=== PATIENT | female | born 1970 | race Caucasian/White ===

== ENCOUNTER 2019-07-24 10:43 | Outpatient (CLI) | payer OTHER, SELFPAY ==
--- NOTE | ~2019-07-24 | MM_ITS ---
EXAMINATION: MM screening [facility] BI w chris HISTORY: Screening mammogram TECHNIQUE: Craniocaudal and mediolateral oblique 3-D tomosynthesis images were obtained and synthetic 2-D images were generated. CAD analysis was submitted and interpreted. COMPARISON: Comparison to multiple prior studies sequentially, with oldest reviewed study dated 06/2013. BREAST PARENCHYMAL COMPOSITION: There are scattered areas of fibroglandular density. FINDINGS: There is no evidence of suspicious mass, calcification, or architectural distortion to sugg est malignancy in either breast. There has been no suspicious interval change. IMPRESSION: 1. No mammographic evidence of malignancy. 2. Recommend routine screening mammography in one year. BI-RADS Category 1: Negative Reviewed, dictated and finalized at location A.
== END 2019-07-24 10:44 | disposition home or self-care (01) ==
LOC: ANHIMG 10:48
PROVIDERS: PCP Obstetrics & Gynecology; Visit Provider Obstetrics & Gynecology
DX: Z12.31 Encounter for screening mammogram for malignant neoplasm of breast (principal)
CPT/HCPCS: 77063; 77067

== ENCOUNTER 2022-05-19 08:26 | Emergency (ER) | payer OTHER, SELFPAY ==
[2022-05-19 08:33] VITALS: BP 120/67; PULSE 93; RESP 16; TEMP 36.3; O2SAT 98
--- NOTE | 2022-05-19 08:55 | ED.URI ---
HPI - URI/Sore Throat General Chief Complaint: Upper Respiratory Infection Stated Complaint: Cough/Sinus/Wheezing Time Seen by Provider: 05/19/22 08:55 Source: patient and RN notes reviewed Mode of arrival: ambulatory Limitations: no limitations History of Present Illness HPI Narrative: 51-year-old female presents concern for cough for 3 days. She reports sinus congestion and wheezing. She reports she had a negative COVID test yesterday. She denies known sick contacts. Reports she tried Mucinex DM without relief MD elicited complaint: cough Related Data Home Medications Medication Instructions Recorded Confirmed alprazolam 0.5 mg tablet 0.5 mg PO DIRECTED 05/19/22 05/19/22 atorvastatin 10 mg tablet 10 mg PO DAILY 05/19/22 05/19/22 citalopram 40 mg tablet 40 mg PO DAILY 05/19/22 05/19/22 estradiol 1 mg tablet 1 mg PO DIRECTED 05/19/22 05/19/22 Allergies Allergy/AdvReac Type Severity Reaction Status Date / Time bupropion Allergy Severe Anaphylactic Verified 05/19/22 08:30 Shock Review of Systems Review of Systems: CONSTITUTIONAL: Reports malaise, sweats. Reports fever 2 days ago. EYES: Denies visual changes, redness, or discharge. ENT: Reports rhinorrhea, congestion, otalgia. Denies sore throat. CARDIOVASCULAR: Denies chest pain, palpitations, or edema. RESPIRATORY: Reports cough, wheezing. Denies dyspnea. GASTROINTESTINAL: Denies abdominal pain, nausea, vomiting, diarrhea SKIN: Denies rash or itching. MUSCULOSKELETAL: Denies myalgia. NEUROLOGIC: Denies headache. All systems reviewed & are unremarkable except as noted in HPI and below [facility] Family History Family History (Updated 10/10/13 @ 07:13 by DOCTOR UNKNOWN) Father Hypertension, Onset Age: 60 Family history of type 2 diabetes mellitus, Onset Age: 60 Patient's father is , Onset Age: 60 Grandparent Hypertension, Onset Age: 82 Family history of malignant melanoma Family history of malignant neoplasm of gastrointestinal tract Mother Carcinoma of colon Family history of malignant neoplasm of gastrointestinal tract Other Family history of cardiovascular disease Social History Social History Smoking status: Light tobacco smoker Second hand tobacco smoke exposure: Yes Alcohol intake: current Comments At time of signature, agree with nursing past medical, surgical, social and family history. There is no relevant family history pertinent to the presenting complaint Exam Narrative: GENERAL: Well-appearing, well-nourished, and in no acute distress. HEAD: Normocephalic EYES: PERRLA, conjunctivae clear ENT: Nares clear, turbinates edematous and erythematous, clear discharge. Mucous membranes moist. TM pearly berry with dull light reflex bilaterally; no tragal tenderness. Oropharynx not erythematous without lesions. Tonsils not enlarged and without exudate, no drooling, no hoarseness, no trismus, uvula midline. NECK: Supple. No lymphadenopathy CHEST: Scattered expiratory wheeze, otherwise clear to auscultation, breath sounds equal. No rhonchi, rales, or stridor. No respiratory distress, speaks in full sentences. Persistent cough noted HEART: Regular rate and rhythm. No murmur heard. SKIN: Warm, dry, no rash. NEURO: Alert and oriented x3. PSYCH: Normal mood and affect Course Course Emergency Course: Patient is aware of diagnosis, understands and agrees to treatment plan. Anticipatory guidance given. Patient agrees to follow-up as directed and is aware of reasons to seek care at the emergency department. Portions of this record may have been created with voice recognition software Level of Care: Express Care Visit Vital Signs Vital signs: Vital Signs Temperature 97.4 F L 05/19/22 08:33 Pulse Rate 93 05/19/22 08:33 Respiratory Rate 16 05/19/22 08:33 Blood Pressure 120/67 05/19/22 08:33 Pulse Oximetry 98 05/19/22 08:33 Oxygen Delivery Room Air 05/19/22 08:33 Temperature 97.
== END 2022-05-19 09:08 | disposition home or self-care (01) ==
PROVIDERS: Emergency Provider Nurse Practitioner; PCP Nurse Practitioner Family
DX: J40 Bronchitis, not specified as acute or chronic (principal); F17.200 Nicotine dependence, unspecified, uncomplicated
CPT/HCPCS: 87081; 87804; 87880; 99213; G0463

== ENCOUNTER 2022-10-31 11:44 | Emergency (ER) | payer OTHER, SELFPAY ==
[2022-10-31] VITALS (14 sets, daily range): BP systolic 141–161; BP diastolic 80–99; PULSE 48–76; RESP 11–20; TEMP 36.8; O2SAT 97–100
--- NOTE | ~2022-10-31 | XR_ITS ---
Clinical Indication: Cough, fever PA and lateral views of the chest: Comparison: None Findings: The lungs are clear, without evidence of focal consolidation or pleural effusion. Cardiome diastinal silhouette is within normal limits. Bones and soft tissues are unremarkable. Impression: Normal chest. Reviewed, dictated and finalized at [facility]. Impression: Normal chest.
--- NOTE | ~2022-10-31 | CT_ITS ---
CT of the Abdomen and Pelvis: Indication: Abdominal pain Technique: 2.5 mm axial scans were obtained through the abdomen and pelvis following intravenous adm inistration of 100 cc of Omnipaque 350. Dose reduction technique was used on this scan by utilizing a utomated exposure control and iterative reconstruction technique. The dose-length product (DLP) was 5 76.33 mGy-cm. COMPARISON: 05/15/2017 Findings: Scans through the lung bases are unremarkable. The liver, spleen, pancreas, gallbladder, adrenals and kidneys are within normal limits. No evidence of aortic aneurysm. No lymphadenopathy. No bowel obstruction or bowel wall thickening. There is no evidence to suggest acute appendicitis. Images through the pelvis were performed. Urinary bladder unremarkable. There is a somewhat tubular c ystic mass in the right adnexal region (axial image 154). There is a bilobed cystic mass in the left pelvis (axial image 144). No ascites. Impression: Stable cystic mass in the right pelvis, most compatible hydrosalpinx. Stable bilobed cystic mass in the left pelvis, nonspecific, likely a benign chronic adnexal cystic ma ss versus possibly seroma or lymphocele. Reviewed, dictated and finalized at location . Impression: Stable cystic mass in the right pelvis, most compatible hydrosalpinx. Stable bilobed cystic mass in the left pelvis, nonspecific, likely a benign chr onic adnexal cystic mass versus possibly seroma or lymphocele.
[2022-10-31 13:44] LABS: Basophils Percent Auto 0.3 % (0.2-1.2); Hematocrit 41.8 % (37.0-47.0); Hemoglobin 13.9 g/dL (12.0-15.0); Immature Granulocyte Absolute 0.02 K/mm3 (0.00-0.031); Immature Granulocyte Percent A 0.2 % (0-0.5); Lymphocytes Absolute Auto 4.06 K/mm3 (0.9-3.2); Lymphocytes Percent Auto 45.8 % (18.3-44.2); Mean Corpuscular HGB Conc 33.3 g/dl (32-36); Mean Corpuscular Hemoglobin 28.2 pg (26-34); Mean Corpuscular Volume 84.8 fl (80-100); Mean Platelet Volume 10.6 fl (7.4-10.4); Monocytes Absolute Auto 0.5 K/mm3 (0.1-0.6); Monocytes Percent Auto 6.1 % (2.6-8.5); Neutrophils Absolute Auto 4.2 K/mm3 (1.3-6.7); Neutrophils Percent Auto 47.6 % (45.5-73.1); Platelet Count Result 201 k/mm3 (150-375); Red Blood Count 4.93 M/mm3 (4.2-5.4); Red Cell Distribution Width 12.9 % (11.5-14.5); White Blood Count 8.9 K/mm3 (4.5-10.0)
[2022-10-31] MEDS: ONDANSETRON INJ 4 MG/2 ML VIAL IV PUSH (13:46)
[2022-10-31] MEDS: SODIUM CHLORIDE 0.9% IV 1,000 ML 999 ML IV CONT ×2 (13:46→15:22)
[2022-10-31 13:48] LABS: Influenza A QL RT-PCR Negative (Negative); Influenza B QL RT-PCR Negative (Negative); RSV RNA, RT-PCR Negative (Negative); SARS-CoV-2 RNA PCR Positive (Negative)
[2022-10-31] MEDS: LORazepam INJ (*CRX) 2 MG/ML VIAL 1 MG IV PUSH (13:48)
[2022-10-31] MEDS: ACETAMINOPHEN 500 MG TABLET 1000 MG PO (13:48)
[2022-10-31 13:53] LABS: Alanine Aminotransferase 27 U/L (6-35); Albumin Level 4.5 g/dL (3.5-5.1); Alkaline Phosphatase 65 U/L (38-126); Anion Gap 13 mmol/L (8-16); Aspartate Amino Transferase 49 U/L (14-36); Bilirubin,Total 1.3 mg/dL (0.2-1.3); Blood Urea Nitrogen 15 mg/dL (7-17); Calcium 9.1 mg/dL (8.4-10.2); Carbon Dioxide 19 mmol/L (22-30); Chloride 107 mmol/L (98-107); Estimated CRCL calculation 66 ml/min; Estimated Glomerular Filt Rate > 60; Glucose 90 mg/dL (65-110); Lipase 70 U/L (23-300); Potassium 4.1 mmol/L (3.4-5.0); Sodium 139 mmol/L (137-145)
[2022-10-31 14:44] LABS: Appearance Urine Clear (Clear); Bacteria Urine Rare /hpf; Bilirubin Urine Negative (Negative); Blood Urine 1+ (Negative); Color Urine Yellow (Yellow); Glucose Urine UA Negative (Negative); Ketones Urine 2+ mg/dL (Negative); Leukocyte Esterase Ur Negative LEU/UL (Negative); Nitrate Urine Negative (Negative); Non Pathogenic Casts 0-2; Protein Urine Negative (Negative); Squamous Epithelial Cell Urine None seen /hpf (Few); WBC Urine 0-5 /hpf
[2022-10-31 14:52] LABS: Specific Grav Ur 1.046 (1.001-1.035)
[2022-10-31 14:53] LABS: Add Urine Microscopic? YES
--- NOTE | 2022-10-31 15:10 | ED.NAVMDI ---
HPI - Nausea/Vomiting/Diarrhea General Chief complaint: Nausea/Vomiting/Diarrhea Stated complaint: COVID pos n/v Time Seen by Provider: 10/31/22 12:54 History of Present Illness HPI Narrative: 52-year-old female reports for evaluation for nausea, vomiting, diarrhea, abdominal pain, cough, body aches x3 days. Patient states her recently tested positive for COVID a week prior to the onset of her symptoms. She does report a fever of 101 at home. States she is having difficulty eating and drinking because it causes her to vomit. She reports taking 5 COVID test at home that were all negative. Denies chest pain, shortness of breath, melena or hematochezia, dysuria or hematuria. Patient is tearful on exam and states she is feeling very anxious. Reports not taking any of her medications due to inability to tolerate p.o. intake, including her anxiety and depressive medications.. Related Data Home Medications Medication Instructions Recorded Confirmed alprazolam 0.5 mg tablet 0.5 mg PO DIRECTED 05/19/22 05/19/22 atorvastatin 10 mg tablet 10 mg PO DAILY 05/19/22 05/19/22 citalopram 40 mg tablet 40 mg PO DAILY 05/19/22 05/19/22 estradiol 1 mg tablet 1 mg PO DIRECTED 05/19/22 05/19/22 Allergies Allergy/AdvReac Type Severity Reaction Status Date / Time bupropion Allergy Severe Anaphylactic Verified 10/31/22 12:44 Shock Review of Systems Review of Systems: CONSTITUTIONAL: Denies fever, chills EYES: Denies visual changes, redness, or discharge. ENT: See HPI CARDIOVASCULAR: Denies chest pain, palpitations, or edema. RESPIRATORY: Denies cough or dyspnea. GASTROINTESTINAL: See HPI GENITOURINARY: Denies dysuria or hematuria. SKIN: Denies rash or itching. MUSCULOSKELETAL: Denies back pain, joint pain, or myalgia. NEUROLOGIC: Denies headache, numbness, dizziness, or weakness. PSYCHIATRIC: See HPI. [facility] Family History Family History Father Hypertension, Onset Age: 60 Family history of type 2 diabetes mellitus, Onset Age: 60 Patient's father is , Onset Age: 60 Grandparent Hypertension, Onset Age: 82 Family history of malignant melanoma Family history of malignant neoplasm of gastrointestinal tract Mother Carcinoma of colon Family history of malignant neoplasm of gastrointestinal tract Other Family history of cardiovascular disease Social History Social History Smoking status: Light tobacco smoker Second hand tobacco smoke exposure: Yes Alcohol intake: current Exam Narrative: GENERAL: Patient appears uncomfortable, tearful. No acute distress. Speaking in full sentences. HEAD: Normocephalic EYES: PERRLA ENT: Nares clear. Mucous membranes moist. Oropharynx without tonsillar hypertrophy exudate or other lesions. Bilateral TMs are berry nonbulging. Normal canals. NECK: Supple. CHEST: No respiratory distress. Clear to auscultation, no adventitious breath sounds. HEART: Regular rate and rhythm. No murmur heard. Normal peripheral pulses. ABDOMEN: Normal active bowel sounds. Abdominal tenderness with guarding to the right lower quadrant, left lower quadrant and right upper quadrant. No overlying skin changes. No rigidity or rebound. No CVA tenderness. EXTREMITIES: Normal range of motion. No edema. SKIN: Warm, dry, no rash. NEURO: No focal deficits. Alert and oriented x3. PSYCH: Patient is tearful and appears anxious. Course Vital Signs Vital signs: Vital Signs Temperature 98.2 F 10/31/22 12:00 Pulse Rate 69 10/31/22 12:00 Respiratory Rate 18 10/31/22 12:00 Blood Pressure 141/89 H 10/31/22 12:00 Pulse Oximetry 100 10/31/22 12:00 Oxygen Delivery Room Air 10/31/22 12:00 Temperature 98.2 F 10/31/22 12:00 Pulse Rate 48 L 10/31/22 16:02 Respiratory Rate 20 10/31/22 16:02 Blood Pressure 153/80 H 10/31/22 16:28
== END 2022-10-31 16:45 | disposition home or self-care (01) ==
PROVIDERS: Preventive Medicine Aerospace Medicine; Emergency Provider Physician Assistant; PCP Nurse Practitioner Family
DX: U07.1 COVID-19 (principal); E86.0 Dehydration; F41.9 Anxiety disorder, unspecified; F32.A Depression, unspecified; F17.200 Nicotine dependence, unspecified, uncomplicated; R19.04 Left lower quadrant abdominal swelling, mass and lump; R19.03 Right lower quadrant abdominal swelling, mass and lump
CPT/HCPCS: 36415; 71046; 74177; 80053; 81001; 83690; 85025; 87637; 96361; 96374; 96375; 99284; A9270; J2060; J2405; J7030; Q9967

== ENCOUNTER 2023-04-26 07:41 | Outpatient (CLI) | payer OTHER, SELFPAY ==
--- NOTE | ~2023-04-26 | US_ITS ---
Limited Abdominal Sonogram: Real-time sonographic imaging of the right upper quadrant was performed. Clinical History: Periumbilical pain Findings: No abnormality seen in the periumbilical region. No mass lesion or fluid collection. No def inite hernia evident. Impression: No significant abnormality seen in the periumbilical region. No definite hernia identified.. Reviewed, dictated and finalized at [facility]. Impression: No significant abnormality seen in the periumbilical region. No definite hernia identified..
== END 2023-04-26 07:42 ==
LOC: MICIMG 07:43
PROVIDERS: PCP Nurse Practitioner Family; Visit Provider Nurse Practitioner Family
DX: R10.33 Periumbilical pain (principal); K42.9 Umbilical hernia without obstruction or gangrene
CPT/HCPCS: 76705

== ENCOUNTER 2023-09-11 11:09 | Outpatient (CLI) | payer OTHER, SELFPAY ==
--- NOTE | ~2023-09-11 | MM_ITS ---
EXAMINATION: MM screening [facility] BI w chris HISTORY: Screening TECHNIQUE: Craniocaudal and mediolateral oblique 3-D tomosynthesis images were obtained and synthetic 2-D images were generated. CAD analysis was submitted and interpreted. COMPARISON: Comparison to multiple prior studies sequentially, with oldest reviewed study dated 06/2013. BREAST PARENCHYMAL COMPOSITION: Not dense: There are scattered areas of fibroglandular density. FINDINGS: There is no evidence of suspicious mass, calcification, or architectural distortion to sugg est malignancy in either breast. There has been no suspicious interval change. IMPRESSION: 1. No mammographic evidence of malignancy. 2. Recommend routine screening mammography in one year. BI-RADS Category 1: Negative Reviewed, dictated and finalized at location B.
== END 2023-09-11 11:10 ==
LOC: MICIMG 11:11
PROVIDERS: PCP Nurse Practitioner Family; Visit Provider Nurse Practitioner Family
DX: Z12.31 Encounter for screening mammogram for malignant neoplasm of breast (principal)
CPT/HCPCS: 77063; 77067

== ENCOUNTER 2024-03-06 08:14 | Outpatient (CLI) | payer OTHER, SELFPAY ==
--- OUTSIDE RECORDS SUMMARY | 2024-03-07 21:43 | XMS_ITS | Clinical Summary ---
Author Organization [facility] Address [address] [place] [address]. [place] [address] [place] [address] Care Team Providers Care Policy Checker Name Role Phone Catherine Ynes CARMENCITA Primary Care Provider [phone] Pj Guido MD Unavailable [phone] Allergies Active Allergy Reactions Criticality Noted Date Comments Bupropion Throat swelling High 11/01/2018 Medications Cholecalciferol (VITAMIN D3) 50 MCG (1999 UT) Tab Take 1 tablet (50 mcg total) by mouth daily. Active Probiotic Product (PROBIOTIC DAILY OR) Take 1 tablet by mouth daily. Active folic acid 1000 mcg/mL 1000 mcg/mL oral suspension 2 Active omeprazole (PRILOSEC) 40 MG capsuleIndications: Gastroesophageal reflux disease, unspecified whether esophagitis present Take 1 capsule (40 mg total) by mouth daily. 90 capsule 3 4 Active diclofenac EC (VOLTAREN) 75 MG tabletIndications:P olyarthralgia Take 1 tablet (75 mg total) by mouth 2 (two) times daily. 60 tablet 3 4 Active atorvastatin (LIPITOR) 10 MG tabletIndications:M ixed hyperlipidemia Take 1 tablet (10 mg total) by mouth nightly at bedtime. 90 tablet 3 4 Active citalopram (CELEXA) 40 MG tabletIndications:A nxiety Take 1 tablet (40 mg total) by mouth daily. 90 tablet 3 4 Active estradiol (ESTRACE) 1 MG tabletIndications:H ormone replacement therapy (HRT) Take 1 tablet (1 mg total) by mouth daily. 90 tablet 3 4 Active ALPRAZolam (XANAX) 0.5 MG tabletIndications:A nxiety Take 1 tablet (0.5 mg total) by mouth 2 (two) times daily as needed. FOR ANXIETY 60 tablet 2 4 Active albuterol sulfate HFA 108 (90 Base) MCG/ACT inhalerIndications: Chronic cough Inhale 2 puffs into the lungs every 6 (six) hours as needed. FOR WHEEZING 8.5 g 5 4 Active DULoxetine (CYMBALTA) 20 MG capsuleIndications: Arthritis Take 1 capsule (20 mg total) by mouth daily. 60 capsule 1 4 Active Active Problems Problem Noted Date Diagnosed Date Periumbilical abdominal pain 04/20/2023 Periumbilical hernia 04/20/2023 Post-menopausal 04/20/2023 Elevated blood pressure read ing in office without diagnosis of hypertension 04/20/2023 Rectocele 04/20/2023 Chest wall pain, chronic 09/12/2022 Polyarthralgia 09/12/2022 Family history of rheumatoid arthritis Chronic pain of left knee 09/12/2022 Chronic cough 09/12/2022 Hormone replacement therapy (HRT) 09/12/2022 BRBPR (bright red blood per rectum) 10/25/2021 Overview (10/25/2021): Added automatically from request for surgery [id number] Chest wall pain 06/24/2021 Gastroesophageal reflux dise ase, unspecified whether esophagitis present 06/24/2021 Anxiety and depression 04/08/2020 Mixed hyperlipidemia 10/07/2019 B12 deficiency 10/07/2019 Vitamin D deficiency 10/07/2019 Muscle spasm of back 10/07/2019 Anxiety 11/20/2018 Family history of diabetes mellitus in father Class 1 obesity due to exces s calories without serious comorbidity with body mass index (BMI) of 30.0 to 30.9 in adult 11/20/2018 Nevus of face 11/20/2018 Atypical nevus of right lower leg 11/20/2018 Atypical nevus of shoulder, left 11/20/2018 Bilateral hearing loss, unspecified hearing loss type 11/20/2018 Family history of colon cancer 11/20/2018 Nicotine vapor product user 11/20/2018 Other chest pain 11/02/2018 Former smoker 11/02/2018 Family history of breast cancer in first degree relative 11/02/2018 Family history of coronary arteriosclerosis 10/15 Resolved Problems Problem Noted Date Diagnosed Date Resolved Date Trigger finger of left thumb 04/08/2020 06/24/2021 Bilateral carpal tunnel syndrome 04/08/2020 06/24/2021 Encounter for lipid screenin g for cardiovascular disease 11/20/2018 10/25/2019 Encounter for vitamin deficiency screening 11/20/2018 10/25/2019 Screening for endocrine, nut ritional, metabolic and immunity disorder 11/20/2018 10/25/19 Need for immunization against influenza 11/20/2018 10/25/2019 Need for vaccination against Streptococcus pneumoniae using pneumococcal conjugate vaccine 13 11/20/2018 10/25/2019 Need for diphtheria-tetanus- pertussis (Tdap) vaccine 11/20/2018 10/25/2019 Encounters Date Type Department Care Team Description 02/12/2024 Telephone [facility] Medical [facility] Family & Internal Medicine [address] [phone] Ynes Alexander FNP Medication 01/03/2024 Telephone [facility] [address] [address] Ynes Alexander FNP Results 12/26/2023 8:40 AM GAS BOOSTER ENGINEER Office Visit [facility] Internal [address] [phone] Ynes Alexander FNP Physical (Sugery in February with uriology of [facility] ) 12/26/2023 - 12/26/2023 11:59 PM GAS BOOSTER ENGINEER Hospital Encounter [facility] [address] [place] [address] Ynes Alexander FNP Discharge Disposition: Home or Self Care (Routine Discharge) 12/26/2023 Travel from Last 3 Months Immunizations Name Administration Dates Next Due Fluarix (IIV4) 11/20/2018 Fluzone (IIV3, Trivalent, 0. 5 ML Prefilled Syringe) 12/26/2023 Influenza Adult (Generic) 12/12/2019,01/2017,11/16/2014,2013 PFIZER COVID-19 (12+) MRNA, LNP-S, PF, PETER-SUCROSE, 30 MCG/0.3 ML (COMIRNATY) 12/26/2023 Pneumococcal (Prevnar 13) 11/20/2018 Tdap (Boostrix) 11/20/2018 Family History Medical History Relation Comments Diabetes Father Heart Disease Father chf Alzheimers Maternal Grandfather Cancer Maternal Grandfather brain Alzheimers Maternal Grandmother Cancer Mother colon Heart Disease Paternal Grandfather Cancer Paternal Grandmother stomach Breast Cancer Sister Cancer Sister breast Cancer Son 4 large b cell lym phoma non-hodgkins Relation Status Comments Daughter 1 Alive Daughter [address] umbilical cord cut, polycystic kidney disease Father (Age 60) Maternal Grandfather Maternal Grandmother Mother (Age 70) of malnut rition due to side effect of radiation treatments for cancer, anemia Paternal Grandfather Paternal Grandmother (Age 88) Sister Son 1 Alive Son 2 Alive Son 3 prior to bi rth Son 4 Alive Social History Tobacco Use Types Packs/Day Years Used Date Smoking Tobacco: Former Cigarettes 0.5 36 0 07/06/1982 - 07/06/2018 Electronic Cigarettes Passive Smoke Exposure: Past Smokeless Tobacco: Never Tobacco Cessation:Counseling Given: Not Answered Comments:quit smoking cigarettes 07/2018 Alcohol Use Standard Drinks/Week Comments No 0 (1 standard drink = 0.6 oz pur e alcohol) AUDIT-C Answer Date Recorded Frequency of Alcohol Consumption Never 11/02/2018 Average Number of Drinks Not on file 019 Frequency of Binge Drinking Not on file 10/15 PHQ-2 Answer Date Recorded Patient Health Questionnaire-2 Score 0 12/26/2023 Comments No Sex and Gender Information Value Date Recorded Sex Assigned at Not on file Legal Sex Female 9:46 AM CDT Gender Identity Female 06/24/2021 12:40 PM CDT Sexual Orientation Straight 06/24/2021 12 :40 PM CDT Last Filed Vital Signs Vital Sign Reading Time Taken Comments Blood Pressure 133/89 12/26/2023 8:52 AM GAS BOOSTER ENGINEER Pulse 67 12/26/2023 8:52 AM GAS BOOSTER ENGINEER Temperature 36.7 ??C (98.1 ??F) 12/26/2023 8:52 AM CS T Respiratory Rate 14 12/26/2023 8:52 AM GAS BOOSTER ENGINEER Oxygen Saturation 97% 12/26/2023 8:52 AM GAS BOOSTER ENGINEER Inhaled Oxygen Concentration - - Weight 82.9 kg (182 lb 11.2 oz) 12/26/2023 8:52 AM GAS BOOSTER ENGINEER Height 169.5 cm (5' 6.75 ) 12/26/2023 8:52 AM CS T Body Mass Index 28.83 12/26/2023 8:52 AM GAS BOOSTER ENGINEER Plan of Treatment Health Maintenance Due Date Last Done Comments Hepatitis B Vaccines (1 of 3 - 19+ 3-dose series) 1989 Annual Physical 10/21/2023 10/20/2022 PHQ-2 (Physician Gautier) 12/25/2024 12/26/2023 Mammogram Screening 09/10/2025 09/11/2023, 9 DTaP, Tdap and Td Vaccines (2 - Td or Tdap) 11/20/2028 11/20/2018 Colorectal Cancer Screening Colonoscopy (10 Years) 11/16/2031 11/15/2021, 11/15/2021, 04/24/2017 Pneumococcal Vaccine: Pediatrics (0 to 5 Years) and At-Risk Patients (6 to 64 Years) Aged Out 11/20/2018 No longer eligible based on patient's age to complete this topic Hepatitis C Completed 06/28/2021 Zoster Vaccines Completed 03/30/2023, 12/05/2022 COVID-19 Vaccine Completed 12/26/2023, , 01/26/2021, Additional history exists Influenza Adult Completed 12/26/2023, 11/14, 01/04/2022, Additional history exists Meningococcal B Vaccine Aged Out No l onger eligible based on patient's age to complete this topic Meningococcal Vaccine Aged Out No spring lilian eligible based on patient's age to complete this topic RSV Immunizations Under 20 Months Aged Out No longer eligible based on patient's age to complete this topic Procedures Procedure Name Priority Date/Time Associated Diagnosis Comments CYCLIC CITRULLINATED PEPTIDE (CCP)ANTIBODY(IGG) Routine 12/26/2023 10:10 AM GAS BOOSTER ENGINEER Polyarthralgia MAGNESIUM Routine 12/26/2023 10:10 AM GAS BOOSTER ENGINEER Polyarthralgia FOLIC ACID SERUM Routine 12/26/2023 10:1 0 AM GAS BOOSTER ENGINEER B12 deficiency VITAMIN B-12 Routine 12/26/2023 10:10 AM GAS BOOSTER ENGINEER B12 deficiency URINALYSIS, AUTO, COMPLETE Routine 12/26/2023 10:10 AM GAS BOOSTER ENGINEER Mixed hyperlipidemia Overweight with body mass index (BMI) of 28 to 28.9 in adult COMPREHENSIVE METABOLIC PANEL Routine 12/26/2023 10:10 AM GAS BOOSTER ENGINEER Mixed hyperlipidemia Overweight with body mass index (BMI) of 28 to 28.9 in adult URIC ACID BLOOD Routine 12/26/2023 10:10 AM GAS BOOSTER ENGINEER Mixed hyperlipidemia Overweight with body mass index (BMI) of 28 to 28.9 in adult VITAMIN D, 25 OH Routine 12/26/2023 10:1 0 AM GAS BOOSTER ENGINEER Vitamin D deficiency TSH W/REFLEX Routine 12/26/2023 10:10 AM GAS BOOSTER ENGINEER Mixed hyperlipidemia Overweight with body mass index (BMI) of 28 to 28.9 in adult LIPID PANEL Routine 12/26/2023 10:10 AM GAS BOOSTER ENGINEER Mixed hyperlipidemia Overweight with body mass index (BMI) of 28 to 28.9 in adult CBC W/DIFF AUTOMATED Routine 12/26/2023 10:10 AM GAS BOOSTER ENGINEER Mixed hyperlipidemia Overweight with body mass index (BMI) of 28 to 28.9 in adult SED RATE, ERYTHROCYTE (ESR) Routine 12/26/2023 10:10 AM GAS BOOSTER ENGINEER Polyarthralgia C-REACTIVE PROTEIN Routine 12/26/2023 10 :10 AM GAS BOOSTER ENGINEER Polyarthralgia ANTINUCLEAR ANTIBODY WI RFX Routine 12/26/2023 10:10 AM GAS BOOSTER ENGINEER Polyarthralgia MG/PCCL UDS W CONF Routine 12/26/2023 9: 52 AM GAS BOOSTER ENGINEER Long-term use of high-risk medication COLLECTION VENOUS BLOOD VENIPUNCTURE Routine 12/26/2023 9:35 AM GAS BOOSTER ENGINEER Polyarthralgia Overweight with body mass index (BMI) of 28 to 28.9 in adult MAMMOGRAM GENERIC (SCAN ORDER) 09/11/2023 COLONOSCOPY Routine 11/15/2021 12:07 PM CDT HEPATITIS C ANTIBODY Routine 06/28/2021 8:20 AM CDT Need for hepatitis C screening test from Last 3 Months or Most Recently Relevant to Health Maintenance Results * TSH W/REFLEX (12/26/2023 10:10 AM GAS BOOSTER ENGINEER) TSH 2.573 0.358 - 3.740 uIU/ML 12/26/2023 4:39 PM GAS BOOSTER ENGINEER [facility] 12/26/2023 10:1 0 AM GAS BOOSTER ENGINEER Ynes Alexander [facility] Final Result [facility] [address] [place] [address], * ANTINUCLEAR ANTIBODY WI RFX (LALITA) (12/26/2023 10:10 AM GAS BOOSTER ENGINEER) LALITA 0.3 12/27/2023 11:25 AM GAS BOOSTER ENGINEER [facility] Comment: NEGATIVE: <0.7 RATIO LALITA PROFILE AND TITER NOT PERFORMED THE LALITA SCREEN TESTS FOR THE FOLLOWING ANTIBODIES BY EIA: SSA1 (RO), SSB1 (LA), BECKETT, SCL70, JO1, CENTROMERE, VIROLOGY TEACHER HISTONE MUST BE ORDERED SEPARATELY DNA (DS) ANTIBODY 1.3 IU/ML 024 11:25 AM GAS BOOSTER ENGINEER [facility] Comment: NEGATIVE: <10 IU/mL EQUIVOCAL: 10 to 15 IU/mL POSITIVE: >15 IU/mL THIS QUANTITATIVE ASSAY IS CALIBRATED TO THE [employer]'S WO/80 STANDARD. THE LEVEL OF dsDNA AUTOANTIBODY GERERALLY CORRELATES WITH THE LEVEL OF DISEASE ACTIVITY IN SYSTEMIC LUPUS ERYTHMATOSUS 12/26/2023 10:1 0 AM GAS BOOSTER ENGINEER Ynes Catherine [facility] Final Result [facility] [address] [place] [address], [id number] * CYCLIC CITRULLINATED PEPTIDE (CCP)ANTIBODY(IGG) (12/26/2023 10:10 AM GAS BOOSTER ENGINEER) CITRULLINE PEPTIDE ANTIBODY <16 UNITS [employer] [facility] Comment: Reference Range Negative: ?<20 Weak Positive: ? 20-39 Moderate Positive: ?? 40-59 Strong Positive: ? >59 12/26/2023 10:1 0 AM GAS BOOSTER ENGINEER 12/27/2023 4:17 AM GAS BOOSTER ENGINEER Narrative Resulting Agency Comment Performing Organization Information: ?Site ID: [place] ?Name: [employer] ?Address: [address] [address] [facility] [place] [address] ?Director: Maura Horan MD Ynes Dhillonmaynor [facility] Final Result Performing Organization Address City/[facility]/ZIP Co de Phone Number [facility] DIAGNOSTICS - ALEXI ORDERS [facility] [address] [place], [place] [address] * (ABNORMAL) URINALYSIS (12/26/2023 10:10 AM GAS BOOSTER ENGINEER) COLOR (U) YELLOW 12/26/2023 3:14 PM GAS BOOSTER ENGINEER -[facility] TRANSPARENCY CLEAR CLEAR 12/26/2023 3:14 PM GAS BOOSTER ENGINEER MG-[facility] SPECIFIC GRAVITY (U) <1.005 1.003 - 1.040 12/26/2023 3:14 PM GAS BOOSTER ENGINEER [facility] U PH 7.0 5.0 - 9.0 12/26/2023 3:14 PM GAS BOOSTER ENGINEER [facility] PROTEIN RANDOM (U) NEGATIVE NEGATIVE 12/26/2023 3:14 PM GAS BOOSTER ENGINEER [facility] GLUCOSE (U) NEGATIVE NEGATIVE 12/26/2023 3:14 PM GAS BOOSTER ENGINEER [facility] KETONES MG/DL (U) NEGATIVE NEGATIVE 12/26/2023 3:14 PM GAS BOOSTER ENGINEER [facility] BILIRUBIN (U) NEGATIVE NEGATIVE 12/26/2023 3:14 PM GAS BOOSTER ENGINEER [facility] BLOOD (U) 1+(A) NEGATIVE 12/26/2023 3:14 PM GAS BOOSTER ENGINEER [facility] UROBILINOGEN 0.2 0.0 - 2.0 EU/DL 12/26/2023 3:14 PM GAS BOOSTER ENGINEER [facility] NITRITES NEGATIVE NEGATIVE 12/26/2023 3:14 PM GAS BOOSTER ENGINEER [facility] LEUKOCYTES (U) NEGATIVE NEGATIVE 12/26/2023 3:14 PM GAS BOOSTER ENGINEER [facility] RBC/HPF 4-9(A) 0 - 3 /HPF 12/26/2023 3:14 PM GAS BOOSTER ENGINEER [facility] WBC/HPF 0-3 0 - 3 /HPF 12/26/2023 3:14 PM GAS BOOSTER ENGINEER [facility] EPI/HPF 0-3 /HPF 12/26/2023 3:14 PM GAS BOOSTER ENGINEER [facility] BACTERIA (U) 2+(A) NONE SEEN 12/26/2023 3:14 PM GAS BOOSTER ENGINEER [facility] URINE SPECIMEN OBTAINED BY CLEAN CATCH PROCEDURE / Unknown 12/26/2023 10:10 AM GAS BOOSTER ENGINEER us Ynes [facility] URINE ORDERABLES Final Result [facility] [place] [address] [place] [address], * VITAMIN B-12 (12/26/2023 10:10 AM GAS BOOSTER ENGINEER) VITAMIN B12 S/P/B 797 193 - 986 PG/ML 12/26/2023 4:39 PM GAS BOOSTER ENGINEER [facility] 12/26/2023 10:1 0 AM GAS BOOSTER ENGINEER Ynesjessenia Dhillonmaynor [facility] Final Result [facility] [place] [address] [place] [address], [place] [phone] * SED RATE, ERYTHROCYTE (ESR) (12/26/2023 10:10 AM GAS BOOSTER ENGINEER) Pathologist [facility] ESR 18 0 - 29 MM/HR 12/26/2023 2:31 PM GAS BOOSTER ENGINEER [facility] 12/26/2023 10:1 0 AM GAS BOOSTER ENGINEER Ynes Alexander [facility] Final Result [facility] [place] [address] [place] [address], [place] [phone] * (ABNORMAL) COMPREHENSIVE METABOLIC PANEL (12/26/2023 10:10 AM GAS BOOSTER ENGINEER) SODIUM S/P/B 141 136 - 145 MMOL/L 12/26/2023 4:39 PM GAS BOOSTER ENGINEER [facility] POTASSIUM S/P/B 4.2 3.5 - 5.1 MMOL/L 12/26/2023 4:39 PM GAS BOOSTER ENGINEER [facility] CHLORIDE S/P/B 102 98 - 107 MMOL/L 12/26/2023 4:39 PM GAS BOOSTER ENGINEER [facility] CO2 31.9 21 - 32 MMOL/L 12/26/2023 4:39 PM GAS BOOSTER ENGINEER [facility] GLUCOSE 93 70 - 99 MG/DL 12/26/2023 4:39 PM [facility] BUN 10 7 - 18 MG/DL 12/26/2023 4:39 PM [facility] CREATININE S/P/B 1.06(H) 0.55 - 1.02 MG/DL 12/26/2023 4:39 PM [facility] [place] CALCIUM S/P/B 8.8 8.4 - 10.5 MG/DL 12/26/2023 4:39 PM [facility] [place] BILIRUBIN TOTAL S/P/B 0.5 0.2 - 1.0 MG/DL 12/26/2023 4:39 PM GAS BOOSTER ENGINEER [facility] [place] ALKALINE PHOSPHATASE S/P/B 93 41 - 108 U/L 12/26/2023 4:39 PM [facility] AST 12(L) 15 - 37 U/L 12/26/2023 4:39 PM [facility] [place] ALT 17 14 - 59 U/L 12/26/2023 4:39 PM [facility] [place] TOTAL PROTEIN S/P/B 7.7 6.4 - 8.2 G/DL 12/26/2023 4:39 PM [facility] [place] ALBUMIN S/P/B 3.7 3.4 - 5.0 G/DL 12/26/2023 4:39 PM [facility] [place] ANION GAP 7.1 5 - 15 MMOL/L 12/26/2023 4:39 PM [facility] Comment:REFERENCE RANGE NOT ESTABLISHED OSMOLALITY (CALC) 291 MOSM/KG 024 4:39 PM [facility] Comment:REFERENCE RANGE NOT ESTABLISHED GFR ESTIMATE 62(L) >90 ML/MIN/1. 73 M2 12/26/2023 4:39 PM [facility] GFR NOTES GFR REFERENCE S: 12/26/2023 4:39 PM [facility] Comment: THE ESTIMATED GFR IS CALCULATED USING THE 2020 CKD-EPI EQUATION. THE FOLLOWING CATEGORIES FOR GRADING RENAL FUNCTION ARE RECOMMENDED BY THE INTERNATIONAL SOCIETY OF NEPHROLOGY (KDIGO 2012 CLINICAL PRACTICE GUIDELINE). G1,NORMAL OR HIGH: >89 ml/min/1.73 m2 G2,MILDLY DECREASED: 60-89 ml/min/1.73 m2 G3A,MILDLY TO MODERATELY DECREASED: 45-59 ml/min/1.73 m2 G3B,MODERATELY TO SEVERELY DECREASED: 30-44 ml/min/1.73 m2 G4,SEVERELY DECREASED: 15-29 ml/min/1.73 m2 G5,KIDNEY FAILURE: <15 ml/min/1.73 m2 12/26/2023 10:1 0 AM GAS BOOSTER ENGINEER Ynes Alexander [facility] Final Result [facility] [address] [place] [address], * (ABNORMAL) LIPID PANEL (12/26/2023 10:10 AM GAS BOOSTER ENGINEER) CHOLESTEROL 174 <200 MG/DL 12/26/2023 4:39 PM GAS BOOSTER ENGINEER [facility] TRIGLYCERIDES 135 <150 MG/DL 12/26/2023 4:39 PM [facility] HDL 42 >40 MG/DL 12/26/2023 4:39 PM GAS BOOSTER ENGINEER [facility] LDL-C 105(H) <100 MG/DL 12/26/2023 4:39 PM [facility] VLDL CALCULATION 27 5 - 28 MG/DL 12/26/2023 4:39 PM [facility] CHOL/HDL RATIO 4.1(H) 0.0 - 4.0 12/26/2023 4:39 PM [facility] LDL/HDL 2.5(H) 0.41 - 2.13 12/26/2023 4:39 PM [facility] NON HDL CHOLESTEROL 132 <140 MG/DL 12/26/2023 4:39 PM GAS BOOSTER ENGINEER [facility] 12/26/2023 10:1 0 AM GAS BOOSTER ENGINEER us Ynes Alexander [facility] Final Result Performing Organization Address [facility] de Phone Number [address] [address], [place] [phone] * (ABNORMAL) C-REACTIVE PROTEIN (12/26/2023 10:10 AM GAS BOOSTER ENGINEER) Pathologist [facility] C-REACTIVE PROTEIN 1.27(H) <0.30 mg/dL 12/26/2023 4:39 PM GAS BOOSTER ENGINEER [facility] 12/26/2023 10:1 0 AM GAS BOOSTER ENGINEER us Ynes Alexander [facility] Final Result Performing Organization Address [facility] de Phone Number [address] [address], [place] [phone] * FOLIC ACID SERUM (12/26/2023 10:10 AM GAS BOOSTER ENGINEER) Pathologist [facility] FOLATE >20.0 8.6 - 58.9 NG/ML 12/26/2023 3:18 PM GAS BOOSTER ENGINEER [facility] 12/26/2023 10:1 0 AM GAS BOOSTER ENGINEER us Ynes Alexander [facility] Final Result Performing Organization Address [facility] de Phone Number [address] [address] [place] [address], [place] [phone] * (ABNORMAL) CBC W/DIFF AUTOMATED (12/26/2023 10:10 AM GAS BOOSTER ENGINEER) Pathologist [facility] WBC 8.34 4.00 - 10.80 x10'3/uL 12/26/2023 2:27 PM GAS BOOSTER ENGINEER [facility] RBC 4.53 4.10 - 5.40 x10'6/uL 12/26/2023 2:27 PM [facility] HGB 12.6 12.0 - 16.0 G/DL 12/26/2023 2:27 PM [facility] HCT 38.5 36.0 - 47.0 % 12/26/2023 2:27 PM [facility] MCV 85.0 78.0 - 100.0 FL 12/26/2023 2:27 PM [facility] MCH 27.8 27.0 - 31.0 PG 12/26/2023 2:27 PM [facility] MCHC 32.7(L) 33.0 - 36.0 G/DL 12/26/2023 2:27 PM [facility] RDW 12.6 11.5 - 14.5 % 12/26/2023 2:27 PM [facility] PLT 287 150 - 350 x10'3/uL 12/26/2023 2:27 PM [facility] MPV 10.6(H) 7.4 - 10.4 FL 12/26/2023 2:27 PM [facility] DIFFERENTIAL TYPE AUTOMATED DIFFERENTIAL 12/26/2023 2:27 PM [facility] NEUTROPHILS % 51.5 % 12/26/2023 2:27 PM [facility] LYMPHOCYTES % 39.7 % 12/26/2023 2:27 PM [facility] MONOCYTES % 7.1 % 12/26/2023 2:27 PM [facility] EOSINOPHILS % 1.3 % 12/26/2023 2:27 PM [facility] BASOPHILS % 0.4 % 12/26/2023 2:27 PM [facility] IMMATURE GRANS % 0.0 % 12/26/2023 2:27 PM [facility] ABS. NEUTROPHILS 4.30 1.60 - 8.30 x10'3/uL 12/26/2023 2:27 PM GAS BOOSTER ENGINEER [facility] ABS. LYMPHOCYTES 3.31 0.80 - 4.70 x10'3/uL 12/26/2023 2:27 PM GAS BOOSTER ENGINEER [facility] ABS. MONOCYTES 0.59 0.00 - 1.50 x10'3/uL 12/26/2023 2:27 PM GAS BOOSTER ENGINEER [facility] ABS. EOSINOPHILS 0.11 0.00 - 0.40 x10'3/uL 12/26/2023 2:27 PM GAS BOOSTER ENGINEER [facility] ABS. BASOPHILS 0.03 0.00 - 0.20 x10'3/uL 12/26/2023 2:27 PM GAS BOOSTER ENGINEER [facility] ABS. IMMATURE GRANULOCYTES 0.00 0.00 - 0.03 x10'3/uL 12/26/2023 2:27 PM GAS BOOSTER ENGINEER [facility] 12/26/2023 10:1 0 AM GAS BOOSTER ENGINEER Ynes Alexander [facility] Final Result Performing Organization Address City/[facility] Co de Phone Number [facility] [address] [place] [address], * VITAMIN D, 25 OH (12/26/2023 10:10 AM GAS BOOSTER ENGINEER) Pathologist [facility] VITAMIN D 25 HYDROXY TOTAL S/P/B 38.5 30 - 100 NG/ML 12/26/2023 4:39 PM GAS BOOSTER ENGINEER [facility] Comment: ? DEFICIENT ??<20 ?INSUFFICIENT 20-30 ?SUFFICIENT 30-100 12/26/2023 10:1 0 AM GAS BOOSTER ENGINEER Ynes Alexander [facility] Final [facility] [place] [address] [place] [address], * MAGNESIUM (12/26/2023 10:10 AM GAS BOOSTER ENGINEER) Pathologist [facility] MAGNESIUM 2.1 1.8 - 2.4 MG/DL 12/26/2023 4:39 PM GAS BOOSTER ENGINEER [facility] 12/26/2023 10:1 0 AM GAS BOOSTER ENGINEER Ynes Alexander CLINICAL INVESTIGATOR LABORATORY Final Result Performing Organization Address City/State/[facility] Co de Phone Number [facility] [place] [address] [place] [address], * URIC ACID BLOOD (12/26/2023 10:10 AM GAS BOOSTER ENGINEER) [facility] [address] URIC ACID 5.8 2.6 - 6.0 MG/DL 12/26/2023 2:51 PM GAS BOOSTER ENGINEER [facility] 12/26/2023 10:1 0 AM GAS BOOSTER ENGINEER Ynes Alexander CLINICAL INVESTIGATOR LABORATORY Final Result Performing Organization Address City/State/[facility] Co de Phone Number [facility] [place] [address] [place] [address], * (ABNORMAL) MG/PCCL UDS W CONF (12/26/2023 9:52 AM GAS BOOSTER ENGINEER) RESULT SUMMARY [facility] Comment: ?Prescribed ?Prescribed ?Not Prescribed ?Consistent ?Inconsistent ?Inconsistent ?Clonazepam ?Alphahydroxyalprazolam ?Marijuana Metabolite PRESCRIBED DRUG 1 (U) Clonazepam [facility] [place] SCREEN (U) NEGATIVE <0.5 ng/mL [facility] MORPHINE (U) NEGATIVE <10 ng/mL [facility] DESMETHYLTRAMADOL (U) NEGATIVE <100 ng/mL [facility] TRAMADOL (U) NEGATIVE <100 ng/mL [facility] TRAMADOL COMMENTS [facility] Comment:See LDT Notes AMPHETAMINES PM NEGATIVE <500 ng/mL [facility] BARBITURATES PM (U) NEGATIVE <300 ng/mL [facility] BENZODIAZEPINES PM (U) POSITIVE(A) <100 ng/mL [facility] ALPHAHYDROXYALPRAZOLAM PM (U) 45(H) <25 ng/mL [facility] ALPHAHYDROXYALPRAZOLAM PM MEDMATCH (U) INCONSISTENT (A) [facility] MIDAZOLAM PM (U) NEGATIVE <50 ng/mL [facility] ALPHAHYDROXYTRIAZOLAM PM (U) NEGATIVE <50 ng/mL [facility] AMINOCLONAZEPAM PM (U) NEGATIVE <25 ng/mL [facility] AMINOCLONAZEPAM PM MM (U) INCONSISTENT (A) [facility] OH ET FLURAZEPAM PM (U) NEGATIVE <50 ng/mL [facility] LORAZEPAM PM (U) NEGATIVE <50 ng/mL [facility] NORDIAZEPAM PM (U) NEGATIVE <50 ng/mL [facility] OXAZEPAM PM (U) NEGATIVE <50 ng/mL [facility] TEMAZEPAM PM NEGATIVE <50 ng/mL [facility] BENZODIAZEPINES COMMENTS [facility] Comment:See Benzodiazepines Notes, LDT Notes COCAINE METABOLITE PM (U) NEGATIVE <150 ng/mL [facility] MARIJUANA METABOLITE PM (U) POSITIVE(A) <20 ng/mL [facility] MARIJUANA METABOLITE PM CONF (U) 563(H) <5 ng/mL [facility] MARIJUANA METAB PM MM CONF (U) INCONSISTENT (A) [facility] MARIJUANA COMMENTS [facility] Comment:See Marijuana Notes, LDT Notes METHADONE PM (U) NEGATIVE <100 ng/mL [facility] OPIATES PM (U) NEGATIVE <100 ng/mL [facility] OXYCODONE PM (U) NEGATIVE <100 ng/mL [facility] CREATININE RANDOM (U) 61.2 > or = 20.0 mg/dL [facility] pH PM (U) 7.4 4.5 - 9.0 [facility] OXIDANT NEGATIVE <200 mcg/mL [facility] NOTE [facility] Comment: This drug testing is for medical treatment only. Analysis was performed as non-forensic testing and these results should be used only by healthcare providers to render diagnosis or treatment, or to monitor progress of medical conditions. Benzodiazepines Notes: aOH Alprazolam detected is consistent with the use of the drug Alprazolam. Marijuana Notes: Marijuana Metabolite detected is consistent with exposure to Marijuana (THC) and/or hemp derived products. ?? Some jurisdictions do not include hemp within the definition of Marijuana. LDT Notes: Confirmation tests were developed and their analytical performance characteristics have been determined by [employer]. It has not been cleared or approved by the FDA. This assay has been validated pursuant to the CLIA regulations and is used for clinical purposes. medMATCH(R) enables providers to identify if drug use is consistent or inconsistent with a corresponding prescribed medication(s) list. Healthcare Providers needing Interpretation assistance, please contact us at [phone] ( ) M-F, 8am to 10pm EST URINE SPECIMEN / Unknown 12/26/2023 9:52 AM GAS BOOSTER ENGINEER 12/27/2023 2:49 AM GAS BOOSTER ENGINEER Narrative Resulting Agency Comment Performing Organization Information: ?Site ID: [id number] ?Name: [facility] ?Address: [address] [place] [address] ?Director: Adarsh Randle ?Site ID: [place] ?Name: [facility] ?Address: [address] [place] [address] ?Director: Maura Horan MD Ynesjessenia Dhillonmaynor CLINICAL INVESTIGATOR URINE ORDERABLES Final Result Performing Organization Address [facility] de Phone Number [facility] [address] [place] [address], [facility] [address] [place] [address] * MAMMOGRAM GENERIC (SCAN ORDER) (09/11/2023) Anatomical Region Laterality Modality Other 09/11/2023 [facility] Scanned SCANNING Final Resu lt * HEPATITIS C ANTIBODY (06/28/2021 8:20 AM CDT) HEPATITIS C AB NON-REACTI VE NON-REACT FABIEN 06/28/2021 9:58 PM CDT [facility] Comment: ANTIBODIES TO HCV NOT DETECTED. DOES NOT EXCLUDE THE POSSIBILITY OF EXPOSURE TO HCV. 06/28/2021 8:20 AM CDT us Ynes Alexander CLINICAL INVESTIGATOR LABORATORY Final Result Performing Organization Address [facility] Co de Phone Number [facility] [address] [place] [address], [phone] * COLONOSCOPY (04/24/2017) us Documents Scanned SCANNING Edited Result - Final from Last 3 Months or Most Recently Relevant to Health Maintenance Insurance [facility] [place] [address] [place] [address] Care Teams Policy Checker Relationship Specialty Start Date End Date Ynes Alexander FNP [address] [place] [phone] PCP - General Nurse Practitioner Family 11/02/18 Pj Guido MD [address] [place] [phone] [employer] Shift Supervisor CARDIOVASCULAR DISEASE 11/02/18
== END 2024-03-06 08:15 | disposition home or self-care (01) ==
LOC: ANHSURGERY 08:19
PROVIDERS: PCP Nurse Practitioner Family; Visit Provider Urology
DX: E78.5 Hyperlipidemia, unspecified (principal)
CPT/HCPCS: 93005

== ENCOUNTER 2024-03-08 00:52 | Day surgery (SDC) | payer OTHER, SELFPAY ==
--- NOTE | 2024-03-02 13:53 | PM.IMHP ---
H&P: HPI History of Present Illness Date/Time: 03/02/24 13:53 Chief Complaint: Rectocele Narrative: presents for rectocele repair. Has had previous repair. Has also had stress incontinence procedure x2 Review of Systems Review of Systems: All systems reviewed & are unremarkable except as noted in HPI and below PMFSH Family History Family History Father Hypertension, Onset Age: 60 Family history of type 2 diabetes mellitus, Onset Age: 60 Patient's father is , Onset Age: 60 Grandparent Hypertension, Onset Age: 82 Family history of malignant melanoma Family history of malignant neoplasm of gastrointestinal tract Mother Carcinoma of colon Family history of malignant neoplasm of gastrointestinal tract Other Family history of cardiovascular disease Social History Social History Smoking status: Light tobacco smoker Second hand tobacco smoke exposure: Yes Alcohol intake: current Meds Home Medications and Allergies Home Medications ?Medication ?Instructions ?Recorded ?Confirmed ?Type albuterol sulfate 90 mcg/actuation 2 puff inhalation QID PRN 05/19/22 Rx aerosol inhaler shortness of breath or wheezing #8.5 grams alprazolam 0.5 mg tablet 0.5 mg PO DIRECTED 05/19/22 05/19/22 History atorvastatin 10 mg tablet 10 mg PO DAILY 05/19/22 05/19/22 History citalopram 40 mg tablet 40 mg PO DAILY 05/19/22 05/19/22 History estradiol 1 mg tablet 1 mg PO DIRECTED 05/19/22 05/19/22 History methylprednisolone 4 mg tablets in See Rx Instructions PO .COMPLEX 05/19/22 Rx a dose pack (Medrol (El)) #21 ea promethazine-DM 6.25 mg-15 mg/5 mL 5 ml PO Q4-6H PRN cough #120 mL 05/19/22 Rx oral syrup ondansetron 4 mg disintegrating 4 mg PO Q8H #14 tabs 10/31/22 Rx tablet Allergies Allergy/AdvReac Type Severity Reaction Status Date / Time bupropion Allergy Severe Anaphylactic Verified 10/31/22 12:44 Shock Exam Narrative: rectocele to the introitus Assessment and Plan Assessment and plan (1) Rectocele: Code(s): N81.6 - Rectocele Status: Acute Assessment and Plan: rectocele repair. Understands risks of bleeding, infection, recurrence, persistence, damage to surrounding organs, damage to the bowel, dyspareunia. Agrees to proceed
[2024-03-05 08:31] VITALS: BMI 29.4
--- NOTE | 2024-03-05 08:39 | PC.NURSE ---
Report to the Outpatient Waiting Room, entrance under the green pavilion located off [facility], at time _0600_ on date _[id number]_. Planned Procedure Time: _0730_.? Time changes happen often and if your time is changed the preop area will call you the afternoon before. - You and your visitor will be asked to self-screen and do not enter if you have any COVID symptoms. Please call surgeon if you need to reschedule. - A mask is optional within the hospital at this time. Patients may have clear liquids (water, carbonated beverages, clear teas, apple juice) until 3 hours prior to surgery with a maximum of 20 ounces. - No food from midnight until time of surgery and no smoking. This includes no chewing gum, candy or mints. Take only the following medications with a SIP of water on the morning of surgery: __Citalopram and if needed Alprazolam and or Albuterol____ DO NOT STOP ANY OF YOUR OTHER PRESCRIPTION MEDICATIONS PRIOR TO SURGERY EXCEPT THE FOLLOWING Medications to discontinue per physician __Patient is holding Duloxetine for surgery with last dose [phone]___ Date to take last dose Please no make-up, nail salvadorean, hairspray, perfume, deodorant, or body powder the day of surgery.? No jewelry (including any body piercings) or valuables the day of surgery, leave them at home.? Please take a shower or bath the night before, or the morning of, surgery with an antibacterial soap.? Wear comfortable, loose fitting clothing.? - Jewelry must be removed prior to entering the operating room.? Rings and piercings that are not removed may be cut off. - The hospital will not accept responsibility for valuables.? - Please leave all valuables, including medications, at home the day of surgery. If you are going home after surgery, a licensed wedding transportation driver must drive you home.? - NO public transportation without another adult if you receive anesthesia. - We recommend that an adult stay with you for 24 hours following discharge. - We also recommend that you do not drive, make important decision, drink alcoholic beverages, or take any drugs that were not prescribed by your health care provider for at least 24 hours after your discharge time. Follow any additional instructions given to you from your surgeon. Telephone instructions given to __Jeannette___and asked if any additional questions and then verbalized understanding. Patient advised to call surgeon office or pre surgery nurse liaison [phone] if any additional questions.
[2024-03-08] VITALS (8 sets, daily range): BP systolic 107–119; BP diastolic 64–87; PULSE 61–82; RESP 14–20; TEMP 36.4–36.5; O2SAT 98–100
--- NOTE | 2024-03-08 04:35 | WPDHPUPDATE1 ---
History and Physical Update Update Date/Time: 03/08/24 04:35 History and Physical has been reviewed, including an updated exam of the patient. There are NO changes in the patient's condition. Risks, benefits, and alternatives have been discussed and questions answered. Patient agrees to proceed with procedure.
[2024-03-08] MEDS: ACETAMINOPHEN 500 MG TABLET 1000 MG PO (06:45)
[2024-03-08] MEDS: LACTATED RINGERS 1,000 ML 30 ML IV CONT (06:45)
--- NOTE | 2024-03-08 06:47 | P.PNAN_ITS ---
Anes - Initial Pre Proc Eval Procedure: Operation Date: 03/08/24 07:30 Proposed Procedures p Rectocele Repair - Ezio Cowan MD Date/Time: 03/08/24 06:47 Surgeon: Ezio Cowan MD Pre Op Diagnosis: rectocele Patient Data Age: 53 Gender: F Height: 1.68 m Weight: 82.7 kg Allergies Allergy/AdvReac Type Severity Reaction Status Date / Time bupropion Allergy Severe Anaphylactic Verified 03/05/24 08:27 Shock diclofenac Allergy Intermediate Hives Verified 03/05/24 08:54 Home Medications ?Medication ?Instructions ?Recorded ?Confirmed ?Type albuterol sulfate 90 mcg/actuation 2 puff inhalation QID PRN 05/19/22 03/05/24 Rx aerosol inhaler shortness of breath or wheezing #8.5 grams alprazolam 0.5 mg tablet 0.5 mg PO DIRECTED 05/19/22 03/05/24 History atorvastatin 10 mg tablet 10 mg PO DAILY 05/19/22 03/05/24 History citalopram 40 mg tablet 40 mg PO DAILY 05/19/22 03/05/24 History estradiol 1 mg tablet 1 mg PO DIRECTED 05/19/22 03/05/24 History duloxetine 20 mg capsule,delayed 20 mg PO DAILY 03/05/24 03/05/24 History release omeprazole 40 mg capsule,delayed 40 mg PO DAILY 03/05/24 03/05/24 History release Patient hx anesthesia problems: none Family hx anesthesia problems: none Results Review: All pre-operative results and documents have been reviewed as part of the pre- operative evaluation. [facility] Past Medical History Medical History (Updated 03/08/24 @ 06:48 by Nvaid Dukes DO) Anxiety Osteoarthritis Hyperlipidemia Surgical History Surgical History (Updated 03/08/24 @ 06:48 by Navid Dukes DO) History of hysterectomy Family History Family History Father Hypertension, Onset Age: 60 Family history of type 2 diabetes mellitus, Onset Age: 60 Patient's father is , Onset Age: 60 Grandparent Hypertension, Onset Age: 82 Family history of malignant melanoma Family history of malignant neoplasm of gastrointestinal tract Mother Carcinoma of colon Family history of malignant neoplasm of gastrointestinal tract Other Family history of cardiovascular disease Social History Social History Years smoked: 30 Smoking status: Former smoker Tobacco type: cigarettes Second hand tobacco smoke exposure: Yes Smoking end date: 03/05/16 Alcohol intake: current Substance use type: marijuana Other substance usage details: Daily Living arrangements: with family Spiritual care concerns: No Anes - Eval Final PreProcedure Day of Procedure 03/08/24 06:47 Patient weight: overweight Heart: regular rate and rhythm Lungs: clear to auscultation Airway: Mallampati scale class II Neurological: alert and oriented Last oral intake: >/= 8 hours ASA classification: III Emergent: no Anesthetic plan: proceed Anesthesia type and monitoring: general LMA and standard monitoring Results Review: All pre-operative results and documents have been reviewed as part of the pre- operative evaluation. Informed Consent: The patient's anesthetic plan and its attendant risks and benefits were discussed with the patient/family/POA. Questions were solicited and answers provided to the satisfaction of the patient/family/POA.
[2024-03-08] MEDS: ceFAZolin 2 GM/D5W 50 ML 2 GM/50 ML BAG IVPB (07:27)
[2024-03-08] MEDS: BUPIVACAINE/EPINEPHRINE 0.5% 50 ML VIAL 20 ML INFILTRATE (07:27)
--- NOTE | 2024-03-08 08:09 | W.PM.PROC2 ---
Procedure Note - Detailed Date of Procedure 03/08/24 Pre-op Diagnosis rectocele Post-op Diagnosis Same Procedure Performed Rectocele repair /posterior colporrhaphy Surgeon Ezio Cowan MD Anesthesia General Indications this is a recurrent rectocele. She is here today for rectocele repair. She understands the risks of bleeding, infection, damage to the rectum, damage to surrounding organs, dyspareunia, recurrent rectocele. She agrees to proceed Findings uncomplicated rectocele repair Description of Procedure she was correctly identified. Informed consent obtained. She from the operating room. She was given general anesthesia. She was placed in dorsal lithotomy position. She was prepped and draped sterile fashion. Time-out performed. I placed a [place] retractor. I placed Wang catheter. She had a rectocele to the area of the introitus. There was a previous incision and scarring in the area. I infiltrated the subcutaneous tissues with local mixed with epinephrine. I made a midline incision on the posterior vaginal wall over the rectocele. I dissected out laterally taking great care not to injure the vaginal wall or the rectum. I also dissected towards the apex. There is no sign of any injury to underlying organs. Once I completed the dissection I started to proceed with a rectocele repair. I did a plication rectocele repair using interrupted 0 Vicryl suture. There was excellent reduction of the rectocele. I trimmed excess vaginal mucosa. I closed the vaginal mucosa running 2-0 Vicryl suture. There was excellent hemostasis. Rectal exam is normal. She was awakened transferred to PACU in stable condition. Estimated Blood Loss 20 Drains No Packing No Pathology None sent Complications No immediate complications Condition Stable Disposition PACU
== END 2024-03-08 09:42 | disposition home or self-care (01) ==
PROVIDERS: PCP Nurse Practitioner Family; Visit Provider Urology
PROC: 0JQC0ZZ Repair Pelvic Region Subcutaneous Tissue and Fascia, Open Approach (ICD-10-PCS; CPT 45560; principal; 2024-03-08 07:30)
DX: N81.6 Rectocele (principal); E78.5 Hyperlipidemia, unspecified; F41.9 Anxiety disorder, unspecified; M19.90 Unspecified osteoarthritis, unspecified site; Z87.891 Personal history of nicotine dependence; F12.90 Cannabis use, unspecified, uncomplicated; Z79.51 Long term (current) use of inhaled steroids; Z80.0 Family history of malignant neoplasm of digestive organs; Z82.49 Family history of ischemic heart disease and other diseases of the circulatory system
CPT/HCPCS: 57250; A9270; J0690; J1100; J1596; J2003; J2250; J2371; J2405; J2704; J3010; J7120